=== PATIENT | female | born 1950 | race Caucasian/White ===

== ENCOUNTER 2021-06-28 07:13 | Day surgery (SDC) | payer MEDICARE ==
[2021-06-23 14:36] LABS: BASOPHILS % (AUTO) 0.4 % (0.0-5.0); EOSINOPHILS % (AUTO) 1.1 % (0.0-8.0); HEMATOCRIT 41.9 % (36-48); LYMPHOCYTES % (AUTO) 25.2 % (21.0-51.0); MEAN CORPUSCULAR HGB CONC 33.4 g/dL (32.0-36.0); MEAN CORPUSCULAR VOLUME 89.9 fL (79-99); MONOCYTES % (AUTO) 8.2 % (3.0-13.0); NEUTROPHILS % (AUTO) 64.7 % (40.0-77.0); PLATELET COUNT (AUTO) 151 K/uL (130-400); RED BLOOD CELL COUNT(AUTO) 4.66 MIL/uL (4.00-5.50); RED CELL DISTRIBUTION WIDTH 13.6 % (11.0-15.5); WHITE BLOOD COUNT (AUTO) 7.2 K/uL (4.8-10.8)
[2021-06-23 14:50] LABS: INR 1.13 (0.85-1.15); PROTHROMBIN TIME 12.2 SEC (9.6-11.6)
[2021-06-23 14:52] LABS: PARTIAL THROMBOPLASTIN TIME 27.4 SEC (26.3-35.5)
[2021-06-23 14:54] LABS: ALBUMIN 3.8 g/dL (3.5-5.0); BILIRUBIN,TOTAL 0.5 mg/dL (0.2-1.0); CREATININE 1.8 mg/dL (0.5-1.5); POTASSIUM 4.6 mmol/L (3.5-5.1); TOTAL PROTEIN, SERUM 7.5 g/dL (6.0-8.3)
[2021-06-25 08:56] VITALS: BP 161/68
[~2021-06-28] VITALS: Ht 162.6 cm; Wt 100.1 kg
[2021-06-28] VITALS (15 sets, daily range): BP systolic 113–169; BP diastolic 45–71
[~2021-06-28 07:13] MED LIST: ASPI-1005 PO; ATOR40TA71 PO; CALC0.5C11 PO; ESCI-8 PO; GLIM4TAB36 PO; GLIP10TA9 PO; INSU100I24 SQ; INSU100I3 SQ; INSU100I45 SQ; MAGN400C PO; MYCO360T3 PO; PREDNISOLONE PO; TACR1CAP10 PO; VITAMIN B12 PO; VITAMIN D PO
[2021-06-28] MEDS ORDERED: 0.9%NACL 1000ML 1,000 ML IV SCH (08:00)
[2021-06-28] MEDS ORDERED: CEFAZOLIN SODIUM 1 GM VIAL IVP ONE (08:00)
[2021-06-28] MEDS ORDERED: VANCOMYCIN 1G/250ML KIT 250 ML IV ONE (09:20)
[2021-06-28] MEDS ORDERED: LIDOCAINE PF 100MG/5ML (2%) SYRINGE 5ML ONE (10:11)
[2021-06-28] MEDS ORDERED: PROPOFOL 10 MG/ML 20ML VIAL IV ONE (10:12)
[2021-06-28] MEDS ORDERED: ROCURONIUM 10MG/1ML SYR 10 MG/ML ML ONE (10:13)
[2021-06-28] MEDS ORDERED: FENTANYL CITRATE PF 50 MCG/1 ML 2ML VIAL ONE (10:13)
[2021-06-28] MEDS ORDERED: ONDANSETRON 4MG INJ ONE (10:34)
== END 2021-06-28 12:35 | disposition home or self-care (01) ==
LOC: DAH 07:13
PROVIDERS: ATTEND Student in an Organized Health Care Education/Training Program
DX: D17.0 Benign lipomatous neoplasm of skin and subcutaneous tissue of head, face and neck (principal); I10 Essential (primary) hypertension; E11.9 Type 2 diabetes mellitus without complications; Z79.01 Long term (current) use of anticoagulants; Z79.899 Other long term (current) drug therapy; Z88.8 Allergy status to other drugs, medicaments and biological substances; Z88.6 Allergy status to analgesic agent; Z88.0 Allergy status to penicillin; Z88.3 Allergy status to other anti-infective agents; Z98.890 Other specified postprocedural states; Z90.710 Acquired absence of both cervix and uterus; Z90.49 Acquired absence of other specified parts of digestive tract; Z94.0 Kidney transplant status; Z80.9 Family history of malignant neoplasm, unspecified; Z83.3 Family history of diabetes mellitus; Z79.82 Long term (current) use of aspirin
CPT/HCPCS: 21556; 36415; 71045; 80053; 82948 ×2; 85025; 85610; 85730; 87635; 88304; 93005; A4215; A4221; A4222; A4223; A4663; C9803; G0168; J2001; J2405; J2704; J3010; J3370; J7030